=== PATIENT | male | born 1975 | race Two or more races ===

== ENCOUNTER 2018-01-20 19:22 | Emergency (ER) | payer MEDICAID, OTHER ==
[~2018-01-20] VITALS: Ht 167.6 cm; Wt 102.1 kg
[2018-01-20 21:16] LABS: Urine Bacteria NONE SEEN /hpf (None Seen); Urine Blood Negative /uL (Negative); Urine Specific Gravity 1.021 (1.001-1.035); Urine WBC 1 /hpf (0 - 3)
[2018-01-20 21:30] LABS: Basophils # (auto) 0.1 uL; Eosinophils # (auto) 0.3 uL; Lymphocytes # (auto) 2.2 uL; Nucleated Red Blood Cells % 0.1 %; White Blood Cell 7.4 10^3/uL (4.4-10.8)
[2018-01-20 21:31] LABS: Basophils % (auto) 1.5 % (0.0-2.0); Hematocrit 32.7 % (41.0-53.0); Mean Corpuscular Hemoglobin 20.3 pg (28.0-32.0); Mean Corpuscular Hgb Conc. 30.6 g/dL (32.0-36.0); Mean Corpuscular Volume 66.4 fL (80.0-100.0); Monocytes # (auto) 0.8 uL; Monocytes % (auto) 11.1 % (0.0-12.0); Neutrophils % (auto) 53.4 % (37.0-80.0); Platelet Count (auto) 286 10^3/uL (140-450); Red Blood Cells 4.92 10^6/uL (4.5-5.90); Red Cell Distribution Width 18.9 % (11.8-14.3)
[2018-01-20 21:44] LABS: INR 0.93 (0.9-1.15); Partial Thromboplastin Time 25.8 sec (23.78-33.04)
[2018-01-20 21:47] LABS: Alanine Aminotransferase 181 U/L (16-61); Albumin 4.4 g/dL (3.4-5.0); Anion Gap 7 (5-15); Aspartate Aminotransferase 84 U/L (15-37); BUN/Creatinine Ratio 19.1; Blood Urea Nitrogen 18 mg/dL (7-18); Calcium 8.5 mg/dL (8.5-10.1); Carbon Dioxide 26 mmol/L (21-32); Chloride 106 mmol/L (98-107); GFR African American 114 mL/min; GFR Non-African American 94 mL/min; Glucose 83 mg/dL (74-106); Potassium 3.9 mmol/L (3.5-5.1); Sodium 139 mmol/L (136-145)
[2018-01-20 21:53] LABS: Alkaline Phosphatase 75 U/L (45-117); Bilirubin, Total 0.3 mg/dL (0.2-1.0); Total Protein 8.3 g/dL (6.4-8.2)
[2018-01-20 22:57] LABS: Amylase 52 U/L (25-115); Lipase 238 U/L (73-393)
[2018-01-20 23:25] VITALS: BP 134/69
== END 2018-01-20 23:33 | disposition home or self-care (01) ==
LOC: ER 19:22
DX: R10.12 Left upper quadrant pain (principal)
CPT/HCPCS: 36415; 74022; 80053; 81001; 82150; 83690; 84484; 85025; 85610; 85730; 93005